=== PATIENT | male | born 1980 | race Asian ===

== ENCOUNTER 2019-09-16 08:06 | Emergency (ER) | payer OTHER ==
[~2019-09-16] VITALS: Ht 167.6 cm; Wt 88.0 kg
[2019-09-16 08:13] VITALS: Ht 167.6 cm; Wt 88.0 kg
[2019-09-16 09:18] VITALS: BP 145/93
== END 2019-09-16 09:18 | disposition home or self-care (01) ==
LOC: ED 08:06
DX: H10.89 Other conjunctivitis (principal)